=== PATIENT | female | born 1995 | race Caucasian/White ===

== ENCOUNTER → 2016-09-05 | Outpatient (CLI) | payer OTHER ==
--- NOTE | 2016-09-05 12:44 | US ---
Dear September 05, 2016 Dear Aylin Morrell NP Thank you for for referring your patient for early counseling She is a 21 yo with a history of ulcerative colitis and opioid addiction. PObHx: none PGynHx: not elicited PMHx: Chronic gallstones and pancreatitis age 17- resolved with choly Ulcerative colitis diagnosed at age 18- well controlled on Mesalamine Opiod abuse- transitioned to Suboxone November 2015 initially 8 mg qd now down to 1 mg qd (1/2 mg bid) PSHx: Choly age 17, APPy age 19 Meds: Fish OIl, PNV, Suboxone 1 mg qd Exposures: has a cat at her home, does not change litter box Physical exam deferred IMPRESSION: 1) Early appt- we reviewed importance of PNVs and avoidance of tobacco and alcohol when pr egnant. We reviewed hand washing and Toxo risk. We discussed caffeine intake recommendations. 2) She has opted for continuation of this 3) Ob care when : She has a scheduled new Ob visit with Dr Henry 4) Ulcerative colitis- we discussed safety of Mesalamine in and goal to treat constipation assertively. She will continue routine follow up with GI. 5) Opiod addiction- transitioned to Suboxone and doing very well on 1 mg qd. We reviewed the risks of abstinence syndrome and overall reassuring termite treater helper prediction. We discussed that there i s some data on tapering to off of this in but as she is aware there is not an easy way to t aper off of this low dose. At this time she is planning to continue at current dosing which I believe is reasonable. A total of 30 min was spent and 30 min in face to face time reviewing plan of care Sincerely, Jesusita Lopez MD Perinatologist [facility]
--- NOTE | 2016-09-05 15:17 | US ---
First Trimester Obstetrical Sonography CLINICAL HISTORY: 21-year-old female with a history of ulcerative colitis, on Suboxone opioid. TECHNIQUE: A curvilinear 5 MHz transducer as well as endovaginal pelvic sonography was used to evalua te the gestational sac, embryonic pole, and yolk sac. M-mode Doppler is used. Cine clips are stored o n PACS. Dr. Jesusita Lopez is present. LMP: July 23, 2016, indicating an age of 6 weeks 2 days, and an estimated date of delivery of Apr. FINDINGS: There is a well-circumscribed oval-shaped gestational sac with peripheral decidual reaction within the endometrium. There is a 5.1 mm yolk sac. The embryonic pole has a crown-rump length of 5 mm, corresponding to an age of 6 weeks 2 days. M-mode Doppler confirms a heart rate at 114 bpm. There is no subchorionic hemorrhage or focal fibroid. The maternal right ovary measures 3.0 x 2.1 x 2.6 cm , and the maternal left ovary is not identified. IMPRESSION: There is a single viable intrauterine gestation with biometry concordant with menstrual dating. The patient should return at 20 weeks gestation for more complete anatomic screening and repe at biometry. Please also refer to Dr. Lopez's assessments and specific recommendations for follow-up.
== END ==
LOC: FIMAGING 10:19
PROVIDERS: ATTEND Nurse Practitioner Women's Health
DX: Z34.01 Encounter for supervision of normal first pregnancy, first trimester (principal); Z3A.01 Less than 8 weeks gestation of pregnancy; F11.20 Opioid dependence, uncomplicated; K51.90 Ulcerative colitis, unspecified, without complications

== ENCOUNTER 2017-10-04 16:59 | Observation (INO) | payer OTHER ==
[2017-10-04 17:06] VITALS: RESP 18
[2017-10-04] MEDS ORDERED: ONDANSETRON 4 MG/2 ML VIAL IVP ONE (17:29)
[2017-10-04] MEDS ORDERED: NS 1,000 ML IV ONE (17:29)
--- NOTE | 2017-10-04 17:32 | EDPHY ---
H & P Time Seen by Provider: 10/04/17 17:13 HPI/ROS: CHIEF COMPLAINT: Rectal pain and bloody diarrhea HISTORY OF PRESENT ILLNESS: Patient is a history of ulcerative colitis. She also has history of Clostridium difficile in February 2013 with a fecal transplant. She has been traveling for 2 months [place]. She presents with 2 months of worsening bloody and mucousy stool associated with worsening rectal pain over the past week. She was at urgent care was sent here for the possibility of abscess. She describes increasing bloody and mucus discharge from her rectum. Associated abdominal cramping without fever. She has been on oral prednisone 40 mg a day for the last week which she was prescribed by a cruise ship doctor. Symptoms moderate to severe. Not better worse with anything. REVIEW OF SYSTEMS: Eye: no change in vision ENT: no sore throat Cardiac: no chest pain or syncope Pulmonary: no cough or SOB Abdomen: HPI Musculoskeletal: no back pain Skin: Describes pain in the skin of her rectum Neuro: no headache Constitutional: no fever : Urinary hesitation but no dysuria or frequency A comprehensive 10 point review of systems is otherwise negative aside from elements mentioned in the history of present illness. PAST MEDICAL HISTORY: Cholecystectomy, appendectomy, pancreatitis, Clostridium difficile, ulcerative colitis. Social history: Just returned from 2 months [place] General Appearance: Alert and conversant, cooperative. Eyes: No scleral icterus. ENT, Mouth: Dry mucous membranes Respiratory: Normal respiratory effort, breath sounds equal, lungs are clear to auscultation. Cardiovascular: Regular rate and rhythm. Gastrointestinal: Abdomen is soft and non tender. No rebound or guarding. Rectal exam shows multiple skin tags with no evidence of perirectal induration or fluctuance, no pilonidal cyst. Mucous discharge. Neurological: Alert, face symmetric, normal motor and sensory in extremities. Skin: Warm and dry, no rashes. Musculoskeletal: No peripheral edema. Psychiatric: Not agitated. Emergency Department course/MDM: Patient presents with likely ulcerative colitis flare. Differential is broad and includes but not limited to [place] infectious diarrhea as well as Clostridium difficile. I think she does not have clinical presentation likely to suggest perirectal abscess at this time. IV and labs, GI consultation, admission to hospitalist service. Discussed with Gaetano who is in [facility], recommends admit IV steroids, consider restarting biologics. Discussed with Humberto Wu, admit for supportive care. He requested CT abdomen and pelvis, discussed with the patient and consented. 1846: Proctitis on CT, Mellisa, otherwise negative. Patient refused IV steroids. Convinced the patient to get admitted and speak to the admitting hospitalist about alternatives. I think she has multiple markers of increased inflammation and has failed outpatient oral steroids and inpatient IV therapy would be beneficial. Patient consents. Smoking Status: Former smoker Constitutional: Initial Vital Signs Temperature (C) 36.9 C 10/04/17 17:02 Heart Rate 77 10/04/17 17:02 Respiratory Rate 18 10/04/17 17:02 Blood Pressure 114/80 10/04/17 17:02 O2 Sat (%) 97 10/04/17 17:02 O2 Delivery Mode Room Air Allergies/Adverse Reactions: No Known Allergies Allergy (Unverified 07/25/15 21:26) Home Medications: Medication Instructions Recorded Acetaminophen [Tylenol ES 500 mg 500 mg PO Q6 PRN 10/04/17 (*)] Herbals/Supplements -Info Only 1 ea PO DAILY 10/04/17 predniSONE 40 mg PO DAILY 10/04/17 Medical Decision Making Differential Diagnosis: Differential considered including but not limited to perirectal abscess, pelvic abscess, ulcerative colitis flare, C diff, other infectious diarrhea, GI bleed Consult/Admit Bed Type: [facility] at 1736 - Data Points Laboratory Results: Laboratory Results 10/04/17 17:26 10/04/17 17:26 10/04/1718 10/04/17 17:26 17:26 17:26 WBC RBC Hgb Hct MCV MCH MCHC RDW Plt Count MPV Neut % (Auto) Lymph % (Auto) Saunders % (Auto) Eos % (Auto) Baso % (Auto) Nucleat RBC Rel Count Absolute Neuts (auto) Absolute Lymphs (auto) Absolute Monos (auto) Absolute Eos (auto) Absolute Basos (auto) Absolute Nucleated RBC Immature Gran % Immature Gran # ESR Sodium 141 mEq/L mEq/L (135-145) Potassium 3.8 mEq/L mEq/L (3.5-5.2) Chloride 105 mEq/L mEq/L (97-110) Carbon Dioxide 26 mEq/l mEq/l (22-31) Anion Gap 10 mEq/L mEq/L (8-16) BUN 11 mg/dL mg/dL (7-23) Creatinine 0.6 mg/dL mg/dL (0.6-1.0) Estimated GFR > 60 Glucose 78 mg/dL mg/dL (70-100) Calcium 9.7 mg/dL mg/dL (8.5-10.4) Total Bilirubin 0.3 mg/dL mg/dL (0.1-1.4) Conjugated Bilirubin 0.2 mg/dL mg/dL (0.0-0.5) Unconjugated Bilirubin 0.1 mg/dL mg/dL (0.0-1.1) AST 21 IU/L IU/L (14-46) ALT 32 IU/L IU/L (9-52) Alkaline Phosphatase 86 IU/L IU/L (38-126) C-Reactive Protein 27.4 mg/L H mg/L (<10.0) Total Protein 7.5 g/dL g/dL (6.3-8.2) Albumin 4.0 g/dL g/dL (3.5-5.0) Lipase 86 IU/L IU/L (23-300) Beta HCG, Qual NEGATIVE Urine Color COLORLESS Urine Appearance CLEAR Urine pH 7.0 (5.0-7.5) Ur Specific [place] 1.003 (1.002-1.030) Urine Protein NEGATIVE (NEGATIVE) Urine Ketones NEGATIVE (NEGATIVE) Urine Blood NEGATIVE (NEGATIVE) Urine Nitrate NEGATIVE (NEGATIVE) Urine Bilirubin NEGATIVE (NEGATIVE) Urine Urobilinogen NEGATIVE EU EU (0.2-1.0) Ur Leukocyte Esterase NEGATIVE (NEGATIVE) Urine Glucose NEGATIVE (NEGATIVE) 10/04/17 17:26 WBC 17.68 10^3/uL H 10^3/uL (3.80-9.50) RBC 4.07 10^6/uL L 10^6/uL (4.18-5.33) Hgb 12.3 g/dL L g/dL (12.6-16.3) Hct 36.1 % L % (38.0-47.0) MCV 88.7 fL fL (81.5-99.8) MCH 30.2 pg pg (27.9-34.1) MCHC 34.1 g/dL g/dL (32.4-36.7) RDW 12.8 % % (11.5-15.2) Plt Count 382 10^3/uL 10^3/uL (150-400) MPV 8.7 fL fL (8.7-11.7) Neut % (Auto) 73.6 % % (39.3-74.2) Lymph % (Auto) 17.3 % % (15.0-45.0) Saunders % (Auto) 8.1 % % (4.5-13.0) Eos % (Auto) 0.1 % L % (0.6-7.6) Baso % (Auto) 0.2 % L % (0.3-1.7) Nucleat RBC Rel Count 0.0 % % (0.0-0.2) Absolute Neuts (auto) 13.00 10^3/uL H 10^3/uL (1.70-6.50) Absolute Lymphs (auto) 3.05 10^3/uL H 10^3/uL (1.00-3.00) Absolute Monos (auto) 1.44 10^3/uL H 10^3/uL (0.30-0.80) Absolute Eos (auto) 0.02 10^3/uL L 10^3/uL (0.03-0.40) Absolute Basos (auto) 0.04 10^3/uL 10^3/uL (0.02-0.10) Absolute Nucleated RBC 0.00 10^3/uL 10^3/uL (0-0.01) Immature Gran % 0.7 % % (0.0-1.1) Immature Gran # 0.13 10^3/uL H 10^3/uL (0.00-0.10) ESR 28 MM/HR H MM/HR (0-20) Sodium Potassium Chloride Carbon Dioxide Anion Gap BUN Creatinine Estimated GFR Glucose Calcium Total Bilirubin Conjugated Bilirubin Unconjugated Bilirubin AST ALT Alkaline Phosphatase C-Reactive Protein Total Protein Albumin Lipase Beta HCG, Qual Urine Color Urine Appearance Urine pH Ur Specific [place] Urine Protein Urine Ketones Urine Blood Urine Nitrate Urine Bilirubin Urine Urobilinogen Ur Leukocyte Esterase Urine Glucose Medications Given: Discontinued Medications Sodium Chloride (Ns) 1,000 mls @ 0 mls/hr IV EDNOW ONE; Wide Open PRN Reason: Protocol Stop: 10/04/17 17:30 Last Admin: 10/04/17 17:52 Dose: 1,000 mls Ondansetron HCl (Zofran) 4 mg IVP EDNOW ONE Stop: 10/04/17 17:30 Last Admin: 10/04/17 17:51 Dose: 4 mg Departure - Departure Disposition: [facility] Acute Clinical Impression: Ulcerative colitis Qualifiers: Ulcerative colitis location: ulcerative proctitis Digestive disease complication type: unspecified complication Qualified Code(s): 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
[2017-10-04 17:43] LABS: PLATELET COUNT 382 10^3/uL (150-400)
[2017-10-04] MEDS ORDERED: IOPAMIDOL (ISOVUE-300) 100 ML BTL ONE (18:22)
[2017-10-04 19:44] VITALS: BP 111/71; PULSE 69; TEMP 98.2; O2SAT 96
[2017-10-04] MEDS ORDERED: LIDOCAINE 2% JELLY 5 ML TUBE TP ONE (21:35)
--- NOTE | 2017-10-04 21:42 | PDGENHP ---
History and Physical History and Physical: CC: Flare of ulcerative colitis HISTORY: This young woman who has had ulcerative colitis for the past 4 half years comes in the hospital ER referred from an urgent care because of anorectal pain. She has had mostly mild disease over the last 5 years with occasional [id number] disease and it is all been in the anal rectal area according the patient, without any extraintestinal manifestations. She has used oral steroids, with occasional use of oral prednisone, however much of the last 5 years she has been able to go long without any medication with minimal symptoms. She has spent the last 6 weeks in [place] and over the last couple of weeks or so she has had significant increase in the anorectal pain and perianal swelling. She has had constipation without loose stools, and no increase in frequency of stools, with some small amount of blood in mucus at times. There is some increased pain during passage of stool. There has been no fever. She spoke with Dr. Salter's office by phone and on September 28 they prescribed for her prednisone 40 mg a day which she has taken since then. The mild crampy lower abdominal pain has since resolved but she still has the same rectal and perianal pain and the same small amount of blood and mucus. She does mention that she had a few small itchy bumps on her arms that were pink in color without any blistering and that these did resolve completely fairly quickly with the prednisone. Notably the patient has not been on any medication for her colitis disease for what sounds like most of the last year including quite a while leading up to this past week. On examination in the ER today she was noticed to have some perianal folds but no evidence of abscess, and a CT scan was done showing some the perirectal inflammation and some proctitis without any abscess or other change. ROS: A comprehensive 10 system review revealed no other significant findings PAST MEDICAL HISTORY: Gallstone pancreatitis with subsequent cholecystectomy and no recurrences of pancreatitis since then Appendectomy FAMILY MEDICAL HISTORY: A grandmother has diabetes and report arthritis SOCIAL HISTORY: Finished college 6 months ago with a degree in biology, has been taking a year off and traveling before looking for work. MEDICATIONS: Prednisone 40 mg daily PHYSICAL EXAMINATION: Vital Signs: Stable without fever Examination: General: alert, oriented, good mentation, relaxed Skin: warm, dry, good color, no rash or other lesions HEENT: normal, no oral ulcerations Neck: no mass or jvd Resps: relaxed Lungs: clear breath sounds Heart: regular, no murmur Abdomen: soft, nondistended, nontender; I did not not repeat her anal exam today is that has been done by 2 other male physicians today and we have a CT scan that I was able to review Upper Extremities: normal Lower Extremities: no edema, warm No Bleeding or bruising Neurologic: normal speech/language, normal correctional supervisor, no focal weakness IV site: looks normal LABORATORY DATA: White blood count 17,000, otherwise unremarkable CBC C reactive protein of 27 RADIOLOGY STUDIES: CT scan of abdomen and pelvis, I reviewed the images, there is no abscess there is no free air no other signs of perforation anywhere. She does have some mild proctitis and some carloz rectal fat inflammation 12 LEAD EKG: ASSESSMENT: Flare of ulcerative colitis with mild to moderate anorectal disease, without abscess or perforation, and with minimal bleeding. She does have a fairly high white blood cell count but this is likely largely related to taking 40 mg prednisone for the last 6 days. I had a long discussion with the patient about various treatment options. I reviewed her treatment options with Dr. 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. At this point is not felt that the patient needs ongoing hospital stay but she will need additional therapy. She is not at a spot where we need to be looking at using a biologic therapy as we really have not shown her to be refractory to more conservative treatments. I talked about options with her and with Dr. Gregory and what we have agreed on at this point is to continue her current prednisone in add real loss enemas. Because of her perianal pain I am giving her prescription for some topical lidocaine to make the use of the Rowasa enemas easier and give her more comfort while waiting for that to start working. She already has an appointment with Dr. Salter at his clinic on October 10 6 days from now. I will contact his office in the morning and see if they are able to move her appointment up. I have also given her Dr. Gregory number so that if for some reason she needs more urgent help before she can be seen by Dr. Gaetano Gregory can help her out. PLANS: -will discharge to home tonight -Rowasa enemas 4 g nightly -topical lidocaine as needed for pain -diet as tolerated -stool softener which she has at home I have reviewed the patient's case in detail with . Dr. Otto Augustine and Dr. Teto Gregory
[2017-10-04] MEDS ORDERED: MESALAMINE 4 GM/60 ML ENEMA BOTTLE PR SCH (22:15)
--- NOTE | 2017-10-04 23:01 | PDDCSUM ---
Discharge Summary Discharge Summary: DISCHARGE DIAGNOSES: -acute ulcerative colitis flare with disease limited to the rectum and prostate with no abscess PROCEDURES: CT scan of abdomen and pelvis HOSPITAL COURSE SUMMARY: The patient came into the ER with anorectal pain from flare of ulcerative colitis, so far not responding satisfactorily to 4 mg oral prednisone that she is taking. At this point there is no evidence of any complication nor does it seem that she is at risk for any significant complications in the immediate future. At this point we can add Rowasa enemas, continue the current steroid dose, and hav her follow up with Dr. Tomy Salter and she actually has an appointment with him in 6 days. I have reviewed all of this with the patient in detail and she is comfortable with the treatment plan. PENDING TEST RESULTS: None MEDICATION CHANGES: Rowasa enemas number 30 Topical lidocaine Triamcinolone cream for topical use FOLLOW-UP PLAN: Keep her appointment with Dr. Salter on October 10 Greater than 35 minutes bedside and care coordination time today
== END 2017-10-04 23:10 | disposition home or self-care (01) ==
LOC: F3N 19:49
PROVIDERS: ADMIT Internal Medicine; ATTEND Internal Medicine
DX: K51.90 Ulcerative colitis, unspecified, without complications (principal); Z87.891 Personal history of nicotine dependence
CPT/HCPCS: 96374; J2405; Q9967